=== PATIENT | male | born 1930 | race African-American/Black ===

== ENCOUNTER 2016-10-17 14:35 | Inpatient (IN) | payer MEDICARE, OTHER ==
--- NOTE | ~2016-10-17 | HP ---
History And Physical [address] [place] [address] NAME: MALU REDDY : 32 STATUS : ADM IN PAT#: [id number] AGE: 86 ADM/REG DATE : 10/17/16 MR#: [id number] REPORT SERV DATE: 10/18/16 DICTATED BY: GILA DE LOS SANTOS DATE: 10/17/16 REPORT STATUS : Draft TRANSCRIBED BY: MODL DATE: 10/17/16 DATE OF ADMISSION: 10/17/2016 CHIEF COMPLAINT: Black and red stools starting today. HISTORY OF PRESENT ILLNESS: This is a very pleasant 86 years old gentleman. He is a very poor historian. DICTATION ENDS HERE. CF/MODL Gila De Los Santos M.D. / [id number] CC: MD Toribio Sorto M.D.
--- NOTE | ~2016-10-17 | EGD ---
EGD REPORT [facility] [address] [address] NAME: MALU REDDY : 32 STATUS : ADM IN PAT#: [id number] AGE: 86 ADM/REG DATE : 10/17/16 MR#: [id number] REPORT SERV DATE: 10/19/16 DICTATED BY: JA SOTO DATE: 10/19/16 REPORT STATUS : Draft [facility]ANS[facility]: [facility] DATE: 10/19/16 Endoscopy Center Patient Name: Malu Reddy Date of : 1930 Attending MD: JA SOTO MD Procedure Date No Time: 10/19/2016 Procedure: Colonoscopy Indications: Hematochezia, Heme positive stool, Rectal bleeding, Acute post hemorrhagic anemia Referring MD: RYENALDO PHILIP Medicines: Propofol per Anesthesia Complications: No immediate complications. Procedure: Pre-Anesthesia Assessment: - ASA Grade Assessment: III - A patient with severe systemic disease. After I obtained informed consent, the scope was passed under direct vision. Throughout the procedure, the patient's blood pressure, pulse, and oxygen saturations were monitored continuously. The colonoscopy was performed without difficulty. The patient tolerated the procedure well. The quality of the bowel preparation was good. The CF [id number] was introduced through the anus and advanced to the cecum, identified by appendiceal orifice and ileocecal valve. Findings: The perianal and digital rectal examinations were normal. The colon (entire examined portion) appeared normal. Red blood was found in the rectum, in the recto-sigmoid colon, in the sigmoid colon, in the descending colon and in the transverse colon. Lavage of the area was performed using a large amount of sterile water, resulting in clearance with excellent visualization. no active bleeding site seen Multiple small and large-mouthed diverticula were found in the recto-sigmoid colon, in the sigmoid colon, in the descending colon, at the splenic flexure, in the transverse colon, at the hepatic flexure and in the ascending colon. Non-bleeding internal hemorrhoids were found during retroflexion and were severe, large and Grade I (internal hemorrhoids that do not prolapse). Impression: - The entire examined colon is normal. - Blood in the rectum, in the recto-sigmoid colon, in the sigmoid colon, in the descending colon and in the transverse colon. EGD REPORT [address] [address] NAME: MALU REDDY : [birth year] STATUS : ADM IN PAT#: [id number] AGE: 86 ADM/REG DATE : 10/17/16 MR#: [id number] REPORT SERV DATE: 10/19/16 DICTATED BY: AJ SOTO DATE: 10/19/16 REPORT STATUS : Draft TRANSCRIBED BY: [employer] DATE: 10/19/16 - Diverticulosis in the recto-sigmoid colon, in the sigmoid colon, in the descending colon, at the splenic flexure, in the transverse colon, at the hepatic flexure and in the ascending colon. - Non-bleeding internal hemorrhoids. Recommendation: - Check hemoglobin q 12 hours for two days. - Do a GI bleeding (tagged RBC) scan if symptoms persist. - Return to previous diet. - Repeat colonoscopy in 5 years for screening purposes. - [facility]. Procedure Code(s): --- Professional --- 43116, Colonoscopy, flexible, proximal to splenic flexure; diagnostic, with or without collection of specimen(s) by brushing or washing, with or without colon decompression (separate procedure) Diagnosis Code(s): --- Professional --- K64.0, First degree hemorrhoids K57.30, Diverticulosis of large intestine without perforation or abscess without bleeding K62.5, Hemorrhage of anus and rectum K92.2, Gastrointestinal hemorrhage, unspecified K92.1, Melena R19.5, Other fecal abnormalities D62, Acute posthemorrhagic anemia CPT copyright 2013 [employer]. All rights reserved. The codes documented in this report are preliminary and upon motor vehicle license clerk review may be revised to meet current compliance requirements. Ja Soto MD JA SOTO MD 10/19/2016 10:16 AM This report has been signed electronically. Number of Addenda: 0 Note Initiated On: 10/19/2016 8:35 AM Scope Withdrawal Time 0 hours 13 minutes 12 seconds [address] [place] [address]
--- NOTE | ~2016-10-17 | DS ---
Discharge Summary [facility] [address] [place]. [address] NAME: MALU REDDY : 32 STATUS : DIS IN PAT#: [id number] AGE: 86 ADM/REG DATE : 10/17/16 MR#: [id number] REPORT SERV DATE: 10/21/16 DICTATED BY: REYNALDO KEENE DATE: 10/20/16 REPORT STATUS : Draft TRANSCRIBED BY: MODL DATE: 10/20/16 ADMISSION DATE: 10/17/2016 DISCHARGE DATE: 10/20/2016 Mr. Reddy is an 86-year-old male with a history of diverticulosis, hypertension, glaucoma who presented to the hospital with a complaint of black and red stools for one day. For further details, please refer to H and P dictated by Dr. Pitts on 10/18/2016. HOSPITAL COURSE: Upon presentation to the hospital, the patient was admitted under Hospitalist Service for further management. GI was subsequently consulted. The patient was taken to the Endoscopy Suite for a colonoscopy. Colonoscopy noted diverticulosis in the rectosigmoid colon, in the sigmoid colon, in the descending colon, the splenic flexure, in the transverse colon, the hepatic flexure, and in the ascending colon. However, nonbleeding internal hemorrhoids were found. The entire colon did appear normal. There was no source of bleeding identified. The patient was subsequently returned to the hospital floor for further management. His hemoglobin has been monitored every 12 hours which has remained stable. The patient reports resolution of his symptoms. Throughout hospitalization, the patient has remained hemodynamically stable with no further episodes of gross alcohol bleeding. Given resolution of his symptoms and his hemodynamic stability, the patient will be discharged home today upon GI clearance. Plan has been discussed with the patient who voices understanding and is agreeable with this plan. DISCHARGE DIAGNOSES: 1. Lower gastrointestinal bleed. 2. History of diverticulosis. 3. Hypertension. 4. Acute kidney injury. 5. Glaucoma. 6. Hypokalemia. DISCHARGE EXAMINATION: VITAL SIGNS: Blood pressure 120/70 with pulse of 64, respirations 18, O2 saturation 96% on room air. GENERAL: The patient sitting in bed, in no acute distress, appears stated age, very pleasant. HEENT: Normocephalic, atraumatic. Extraocular motors intact. Moist oral mucosa. NECK: Trachea midline and symmetric. No JVD noted. No thyromegaly present. CHEST: Nontender to palpation. CARDIOVASCULAR: Regular rate and rhythm. S1, S2. No murmurs, rubs, or gallops. LUNGS: Clear to auscultation bilaterally. ABDOMEN: Positive bowel sounds. Nontender. Nondistended. EXTREMITIES: No cyanosis. No clubbing. No edema. NEUROLOGIC: Alert and oriented x3. No focal deficits appreciated. DISCHARGE MEDICATIONS: 1. Amlodipine 10 mg p.o. daily. 2. Brimonidine 1 drop in right eye daily. Discharge Summary [address] [address] NAME: MALU REDDY : 32 STATUS : DIS IN PAT#: [id number] AGE: 86 ADM/REG DATE : 10/17/16 MR#: [id number] REPORT SERV DATE: 10/21/16 DICTATED BY: REYNALDO KEENE DATE: 10/20/16 REPORT STATUS : Draft TRANSCRIBED BY: RAFA DATE: 10/20/16 3. Vytorin 10/40 one tab p.o. at bedtime. 4. Finasteride 5 mg p.o. daily. 5. Imdur 30 mg p.o. daily. 6. Meclizine 12.5 mg p.o. at bedtime. 7. Nexium 40 mg p.o. daily. 8. Valsartan 160 mg p.o. daily. 9. Nitroglycerin 0.4 mg sublingual p.r.n. 10.Breo Ellipta 1 puff inhalation daily. 11.Brinzolamide 1 drop ophthalmic twice a day in right eye. PROCEDURES: Lower endoscopy, colonoscopy performed on 10/19/2016. Please refer to GI notes for detailed results. DISPOSITION: The patient will be discharged home. ACTIVITY: As tolerated. DIET: Low-sodium diet. Greater than 30 minutes was spent coordinating discharge, providing counseling, medication reconciliation, writing prescription, dictation of note. KT/RAFA Reynalod Keene MD / [id number] CC: MD Reynaldo Sanchez M.D.
--- NOTE | ~2016-10-17 | HP ---
History And Physical [facility] [address] [facility] [place]. [address] NAME: MALU REDDY : 34 STATUS : ADM IN PAT#: [id number] AGE: 86 ADM/REG DATE : 10/17/16 MR#: [id number] REPORT SERV DATE: 10/18/16 DICTATED BY: GILA DE LOS SANTOS DATE: 10/17/16 REPORT STATUS : Draft TRANSCRIBED BY: MODL DATE: 10/17/16 DATE OF ADMISSION: 10/17/2016 CHIEF COMPLAINT: GI bleed, black and red stools starting today. HISTORY OF PRESENT ILLNESS: This is an 86-year-old gentleman, very poor historian, very hard of hearing. He has a history of hypertension, hyperlipidemia, peptic ulcer disease, BPH, GERD, glaucoma, remote history of tobacco abuse. He said that he has had some GI bleed in the past. He does not know results of the last colonoscopy that was couple of years ago, he says at [place]. He is on Integra iron at home, presenting today to [facility] with complaints of black stools as well as red stools starting today. Because of the appearance of these bloody stools and black stools, he says he presented to [facility]. He has not had any abdominal pain. No chest pain or shortness of breath. No PND or orthopnea. He has not had any nausea or vomiting. No diarrhea or constipation. He does not have any change in stool form. He has not had any recent GI bleed over the last couple of years. He has been evaluated in the emergency room and Hospitalist Service has been asked for admission, further evaluation, and treatment. His primary care provider is Dr. Toribio Baca. He does not have a current GI doctor. After discussing with Dr. Reece, GI on-call, the patient has been admitted to Hospitalist Service for further evaluation and treatment. PAST MEDICAL HISTORY: Significant for hypertension, hyperlipidemia, peptic ulcer disease and GERD, history of BPH, history of glaucoma, remote history of tobacco abuse, degenerative joint disease, and osteoarthritis. PAST SURGICAL HISTORY: Include left and right knee replacement and bilateral cataract surgery. SOCIAL HISTORY: He is not a smoker. He quit smoking more than 20 years ago, alcohol occasionally, no IV drugs. FAMILY HISTORY: Significant for strokes and also hypertension. MEDICATIONS AT HOME: Include Norvasc, Alphagan ophthalmic solution, brinzolamide ophthalmic solution, Nexium, Vytorin, Proscar, Breo Ellipta, Imdur, meclizine, Nitrostat, prednisolone acetate, Integra, and valsartan. REVIEW OF SYSTEMS: A 14-point review of systems has been obtained and pertinent positive has been listed into the history of present illness. Otherwise, negative except those underlying above. PHYSICAL EXAMINATION: VITAL SIGNS: The patient is afebrile. Blood pressure 133/86, heart rate 87, respiratory rate 16, and saturating 96% on room air. GENERAL: He is a frail-appearing gentleman. He has very poor dentition. Well developed, well nourished, in no acute distress, very hard of hearing. Alert and oriented x3. Nonfocal. He follows commands appropriately. History And Physical [address] [address] NAME: MALU REDDY : 32 STATUS : ADM IN [facility]#: [id number] AGE: 86 ADM/REG DATE : 10/17/16 MR#: [id number] REPORT SERV DATE: 10/18/16 DICTATED BY: GILA DE LOS SANTOS DATE: 10/17/16 REPORT STATUS : Draft TRANSCRIBED BY: RAFA DATE: 10/17/16 HEENT: Show pupils equal, round, reactive to light. Moist mucous membrane. No cervical lymphadenopathy. No thyromegaly. No JVD or bruit appreciated. CHEST: Evaluation shows bilateral air entry, clear anteroposterior. No wheezes, crackles, or rhonchi appreciated. CARDIOVASCULAR: He is regular rate and rhythm. S1 and S2 positive. No S3. No S4. No murmurs, rubs, or gallops appreciated. ABDOMEN: Soft, positive bowel sounds. Nontender. No guarding. No rebound. EXTREMITIES: No clubbing, cyanosis, or edema. NEUROLOGIC: He is alert and oriented x3. He is nonfocal. He follows all commands appropriately. The patient is hard of hearing. LABORATORY DATA: Labs from today include sodium of 141, potassium 3.9, chloride 105, CO2 of 28, BUN 22, creatinine 1.13, glucose is 95, total protein is 8.1, albumin 3.6, globulin 4.5, total bilirubin 0.4, alkaline phosphatase 46, ALT 21, AST 17. White count is 7.2, hemoglobin 12.7, hematocrit 38.3, and platelets are 215. His INR is 1.2. There is CT scan of the abdomen and pelvis without contrast performed in the emergency room, which shows that the patient has no acute abdominopelvic pathology, mild diverticulosis. No diverticulitis. No proctitis. BPH with an enlarged prostate, small fat-containing umbilical hernia, and simple hepatic cyst, otherwise negative. ASSESSMENT: This is an 86-year-old gentleman with: 1. Gastrointestinal bleed. 2. History of peptic ulcer disease. 3. History of diverticulosis. 4. Hypertension. 5. Chronic kidney disease. 6. Prior history of tobacco abuse. 7. History of glaucoma. PLAN: 1. The patient is going to be admitted to Hospitalist Service, keep him on clear liquid diet, Protonix drip, n.p.o. past midnight until seen by Dr. Reece from GI Service. H and H q.6 hours and transfuse as indicated. We are going to hold his Integra. Check all his anemia studies as well. Provide symptomatic pain and nausea control. 2. History of hypertension. We will continue his home medication. Provide p.r.n. hydralazine as needed. 3. History of glaucoma. Continue his home medication. 4. History of tobacco abuse. Nebulizer treatment. Continue his Breo Ellipta. 5. Provide reasonable pain and nausea control as well as GI and DVT prophylaxis with SCDs. That has been discussed extensively with the patient as well as the patient's daughter. All the questions have been answered in full. Further workup and recommendation pending above. It is worthwhile to note that the patient is going to be followed by Dr. Solomon Palomares. CF/MODL History And Physical [address] [address] NAME: MALU REDDY : 32 STATUS : ADM IN PAT#: [id number] AGE: 86 ADM/REG DATE : 10/17/16 MR#: [id number] REPORT SERV DATE: 10/18/16 DICTATED BY: GILA DE LOS SANTOS DATE: 10/17/16 REPORT STATUS : Draft TRANSCRIBED BY: RAFA DATE: 10/17/16 Gila De Los Santos M.D. / [id number] CC: MD Toribio Sorto M.D.
[~2016-10-17 14:35] MED LIST: ALPHAGAN P0.1 % OPH; AZOPT OPH; BENICAR40 PO; IMDUR30 PO; NEXIUM40 PO; NORV10 PO; PROSCAR5 PO; T PO; VYTORIN 10/40 T1 TAB PO
[2016-10-17 15:15] LABS: BASOPHILS 0.4 %; BASOPHILS ABSOLUTE 0.03 10/3/uL (0.0-0.16); EOSINOPHILS 2.2 %; EOSINOPHILS ABSOLUTE 0.16 10/3/uL (0.0-0.53); ER CBC TAT 0 Hrs 07 Mins; HEMATOCRIT 38.3 % (40.0-51.0); HEMOGLOBIN 12.7 g/dL (13.6-17.8); IMMATURE GRANULOCYTES 0.3 %; IMMATURE GRANULOCYTES ABSOLUTE 0.02 10/3/uL (0.0-0.11); LYMPHOCYTES 24.2 %; LYMPHOCYTES ABSOLUTE 1.73 10/3/uL (0.67-4.30); MANUAL DIFF NO %; MEAN CORPUS HGB CONC 33.2 g/dL (32.0-36.0); MEAN CORPUSCULAR HEMOGLOB 28.5 pg (26.0-34.0); MEAN CORPUSCULAR VOLUME 86.1 fL (80-100); MEAN PLATELET VOLUME 9.2 fL (9.2-13.0); MONOCYTES 6.9 %; MONOCYTES ABSOLUTE 0.49 10/3/uL (0.21-1.20); NEUTROPHILS ABSOLUTE 4.72 10/3/uL (2.02-8.40); PLATELET COUNT 215 10/3/uL (150-400); RBC DISTRIBUTION WIDTH 15.6 % (12.0-16.0); RED CELL COUNT 4.45 10/6/uL (4.7-6.1); WHITE BLOOD CELLS 7.2 10/3/uL (4.5-10.5)
[2016-10-17 15:26] LABS: INTERNATIONAL NORMAL RATI 1.2 UNITS (-); PARTIAL THROMBO TIME 32.1 SEC (22.5-37.2); PROTIME (NOT ORD) 14.6 SEC (12.0-14.5)
[2016-10-17 15:28] LABS: A/G RATIO 0.8 (0.7-1.9); ALBUMIN 3.6 G/DL (3.5-5.0); CALCIUM, SERUM 8.8 MG/DL (8.5-10.4); CHLORIDE, SERUM 105 MMOL/L (96-112); CO2 (CARBON DIOXIDE) 28 MMOL/L (24-34); CREATININE 1.38 MG/DL (0.70-1.30); GFR AFRICAN AMERICAN 54 ML/MIN (>=60); GFR NON AFRICAN AMERICAN 47 ML/MIN (>=60); GLOBULIN 4.5 G/DL (2.5-4.1); GLUCOSE, SERUM 95 MG/DL (60-99); POTASSIUM, SERUM 3.9 MMOL/L (3.5-5.3); SGOT(AST) 17 U/L (5-40); SGPT(ALT) 21 U/L (5-65); SODIUM, SERUM 141 MMOL/L (135-148); TOTAL BILIRUBIN 0.4 MG/DL (0-1.2); TOTAL PROTEIN 8.1 G/DL (6.0-8.5)
[2016-10-17 15:29] LABS: ALKALINE PHOSPHATASE 46 U/L (45-117); BUN (BLOOD UREA NITROGEN) 22 MG/DL (6-23)
[2016-10-17] MEDS ORDERED: NORV10 PO (20:51)
[2016-10-17] MEDS ORDERED: AZOPT OPH (20:52)
[2016-10-17] MEDS ORDERED: NEXIUM40 PO (20:52)
[2016-10-17] MEDS ORDERED: ALPHAGAN P0.1 % OPH (20:52)
[2016-10-17] MEDS ORDERED: VYTORIN 10/40 T1 TAB PO (20:52)
[2016-10-17] MEDS ORDERED: IMDUR30 PO (20:53)
[2016-10-17] MEDS ORDERED: PROSCAR5 PO (20:53)
[2016-10-17] MEDS ORDERED: PREDFORTE OPH (20:54)
[2016-10-17] MEDS ORDERED: DIOV160 PO (20:54)
[2016-10-17] MEDS ORDERED: MCZ125 PO (20:55)
[2016-10-17] MEDS ORDERED: NITROSTAT0.4 MG SL (20:55)
[2016-10-17] MEDS ORDERED: BREO ELLIPTA INH (20:55)
[2016-10-17] MEDS ORDERED: INTEGRA PLUS C1 EACH PO (20:55)
[2016-10-17] MEDS ORDERED: INTEGRA IRON PO (20:57)
[2016-10-18 00:32] LABS: HEMATOCRIT 36.2 % (40.0-51.0); HEMOGLOBIN 12.1 g/dL (13.6-17.8)
[2016-10-18 00:40] LABS: INTERNATIONAL NORMAL RATI 1.2 UNITS (-); PARTIAL THROMBO TIME 31.3 SEC (22.5-37.2); PROTIME (NOT ORD) 14.9 SEC (12.0-14.5)
[2016-10-18 01:12] LABS: ALBUMIN 3.5 G/DL (3.5-5.0); ALKALINE PHOSPHATASE 39 U/L (45-117); DIRECT BILIRUBIN 0.2 MG/DL (0.0-0.4); FERRITIN 44 NG/ML (26-388); FREE T4 1.19 NG/DL (0.76-1.46); INDIRECT BILIRUBIN(NOT ORDER) 0.3 MG/DL (0.1-0.9); IRON BINDING CAPACITY 185 MCG/DL (250-450); IRON, SERUM 48 MCG/DL (35-150); PHOSPHORUS, SERUM 2.7 MG/DL (2.5-4.5); SGOT(AST) 14 U/L (5-40); SGPT(ALT) 20 U/L (5-65); TOTAL BILIRUBIN 0.5 MG/DL (0-1.2); TOTAL PROTEIN 7.4 G/DL (6.0-8.5); TROPONIN I <0.02 NG/ML (<0.05)
[2016-10-18 01:26] LABS: ASCORBIC ACID (UR NOT ORDER) NEG (NEG); BILIRUBIN, URINE NEGATIVE (NEG); KETONE, URINE NEGATIVE (NEG); LEUKOCYTE ESTERASE(NOT OR NEG (NEG); WBC (NOT ORDERED) (RFLEX) 2 (0-5)
[2016-10-18 05:28] LABS: HEMATOCRIT 36.8 % (40.0-51.0)
[2016-10-18 05:30] LABS: BASOPHILS 0.5 %; BASOPHILS ABSOLUTE 0.03 10/3/uL (0.0-0.16); EOSINOPHILS 3.3 %; EOSINOPHILS ABSOLUTE 0.21 10/3/uL (0.0-0.53); HEMATOCRIT 35.4 % (40.0-51.0); HEMOGLOBIN 11.7 g/dL (13.6-17.8); IMMATURE GRANULOCYTES 0.2 %; IMMATURE GRANULOCYTES ABSOLUTE 0.01 10/3/uL (0.0-0.11); LYMPHOCYTES 30.1 %; LYMPHOCYTES ABSOLUTE 1.92 10/3/uL (0.67-4.30); MEAN CORPUS HGB CONC 33.1 g/dL (32.0-36.0); MEAN CORPUSCULAR HEMOGLOB 28.6 pg (26.0-34.0); MEAN CORPUSCULAR VOLUME 86.6 fL (80-100); MEAN PLATELET VOLUME 9.9 fL (9.2-13.0); MONOCYTES 13.7 %; MONOCYTES ABSOLUTE 0.87 10/3/uL (0.21-1.20); NEUTROPHILS 52.2 %; NEUTROPHILS ABSOLUTE 3.33 10/3/uL (2.02-8.40); RBC DISTRIBUTION WIDTH 15.7 % (12.0-16.0); RED CELL COUNT 4.09 10/6/uL (4.7-6.1); WHITE BLOOD CELLS 6.4 10/3/uL (4.5-10.5)
[2016-10-18 05:32] LABS: MANUAL DIFF NO %; PLATELET COUNT 120 10/3/uL (150-400)
[2016-10-18 05:45] LABS: CALCIUM, SERUM 8.8 MG/DL (8.5-10.4); CHLORIDE, SERUM 108 MMOL/L (96-112); CO2 (CARBON DIOXIDE) 28 MMOL/L (24-34); CREATININE 1.19 MG/DL (0.70-1.30); GFR AFRICAN AMERICAN 65 ML/MIN (>=60); GFR NON AFRICAN AMERICAN 56 ML/MIN (>=60); POTASSIUM, SERUM 3.6 MMOL/L (3.5-5.3); SODIUM, SERUM 144 MMOL/L (135-148)
[2016-10-18 05:46] LABS: BUN (BLOOD UREA NITROGEN) 18 MG/DL (6-23); GLUCOSE, SERUM 115 MG/DL (60-99)
[2016-10-18 13:17] LABS: HEMATOCRIT 33.6 % (40.0-51.0); HEMOGLOBIN 11.2 g/dL (13.6-17.8)
[2016-10-19 06:55] LABS: BASOPHILS 0.5 %; BASOPHILS ABSOLUTE 0.03 10/3/uL (0.0-0.16); EOSINOPHILS 4.7 %; EOSINOPHILS ABSOLUTE 0.27 10/3/uL (0.0-0.53); HEMATOCRIT 35.5 % (40.0-51.0); HEMOGLOBIN 11.7 g/dL (13.6-17.8); IMMATURE GRANULOCYTES 0.2 %; IMMATURE GRANULOCYTES ABSOLUTE 0.01 10/3/uL (0.0-0.11); LYMPHOCYTES 28.4 %; LYMPHOCYTES ABSOLUTE 1.63 10/3/uL (0.67-4.30); MANUAL DIFF NO %; MEAN CORPUSCULAR HEMOGLOB 28.5 pg (26.0-34.0); MEAN CORPUSCULAR VOLUME 86.6 fL (80-100); MEAN PLATELET VOLUME 8.8 fL (9.2-13.0); MONOCYTES 10.5 %; NEUTROPHILS 55.7 %; NEUTROPHILS ABSOLUTE 3.19 10/3/uL (2.02-8.40); PLATELET COUNT 209 10/3/uL (150-400); RBC DISTRIBUTION WIDTH 15.5 % (12.0-16.0); WHITE BLOOD CELLS 5.7 10/3/uL (4.5-10.5)
[2016-10-19 07:13] LABS: A/G RATIO 0.9 (0.7-1.9); ALBUMIN 3.2 G/DL (3.5-5.0); ALKALINE PHOSPHATASE 35 U/L (45-117); CALCIUM, SERUM 8.6 MG/DL (8.5-10.4); CHLORIDE, SERUM 109 MMOL/L (96-112); CO2 (CARBON DIOXIDE) 27 MMOL/L (24-34); CREATININE 1.09 MG/DL (0.70-1.30); GFR AFRICAN AMERICAN 72 ML/MIN (>=60); GFR NON AFRICAN AMERICAN 62 ML/MIN (>=60); GLOBULIN 3.7 G/DL (2.5-4.1); GLUCOSE, SERUM 117 MG/DL (60-99); POTASSIUM, SERUM 3.8 MMOL/L (3.5-5.3); SGOT(AST) 16 U/L (5-40); SGPT(ALT) 20 U/L (5-65); SODIUM, SERUM 144 MMOL/L (135-148); TOTAL BILIRUBIN 0.4 MG/DL (0-1.2); TOTAL PROTEIN 6.9 G/DL (6.0-8.5)
[2016-10-19 07:16] LABS: BUN (BLOOD UREA NITROGEN) 10 MG/DL (6-23)
[2016-10-20 08:46] LABS: BASOPHILS 0.4 %; BASOPHILS ABSOLUTE 0.02 10/3/uL (0.0-0.16); EOSINOPHILS 4.7 %; EOSINOPHILS ABSOLUTE 0.25 10/3/uL (0.0-0.53); HEMATOCRIT 33.7 % (40.0-51.0); HEMOGLOBIN 11.2 g/dL (13.6-17.8); IMMATURE GRANULOCYTES 0.2 %; IMMATURE GRANULOCYTES ABSOLUTE 0.01 10/3/uL (0.0-0.11); LYMPHOCYTES 32.1 %; LYMPHOCYTES ABSOLUTE 1.71 10/3/uL (0.67-4.30); MEAN CORPUS HGB CONC 33.2 g/dL (32.0-36.0); MEAN CORPUSCULAR HEMOGLOB 28.7 pg (26.0-34.0); MEAN CORPUSCULAR VOLUME 86.4 fL (80-100); MEAN PLATELET VOLUME 9.2 fL (9.2-13.0); MONOCYTES 11.6 %; MONOCYTES ABSOLUTE 0.62 10/3/uL (0.21-1.20); NEUTROPHILS ABSOLUTE 2.72 10/3/uL (2.02-8.40); PLATELET COUNT 232 10/3/uL (150-400); RBC DISTRIBUTION WIDTH 15.6 % (12.0-16.0); WHITE BLOOD CELLS 5.3 10/3/uL (4.5-10.5)
[2016-10-20 08:51] LABS: MANUAL DIFF NO %
[2016-10-20 08:59] LABS: A/G RATIO 0.8 (0.7-1.9); ALBUMIN 3.2 G/DL (3.5-5.0); ALKALINE PHOSPHATASE 35 U/L (45-117); CALCIUM, SERUM 8.5 MG/DL (8.5-10.4); CHLORIDE, SERUM 108 MMOL/L (96-112); CO2 (CARBON DIOXIDE) 28 MMOL/L (24-34); CREATININE 1.13 MG/DL (0.70-1.30); GFR AFRICAN AMERICAN 69 ML/MIN (>=60); GFR NON AFRICAN AMERICAN 59 ML/MIN (>=60); GLOBULIN 3.8 G/DL (2.5-4.1); GLUCOSE, SERUM 109 MG/DL (60-99); POTASSIUM, SERUM 3.4 MMOL/L (3.5-5.3); SGOT(AST) 19 U/L (5-40); SGPT(ALT) 19 U/L (5-65); SODIUM, SERUM 143 MMOL/L (135-148); TOTAL BILIRUBIN 0.3 MG/DL (0-1.2)
[2016-10-20 09:00] LABS: BUN (BLOOD UREA NITROGEN) 6 MG/DL (6-23)
== END 2016-10-20 16:04 | disposition home or self-care (01) | DRG 378 ==
LOC: ER 14:35 → 7NO 21:41
PROVIDERS: Emergency Medicine; Hospitalist; Internal Medicine; Internal Medicine Gastroenterology
PROC: 0DJD8ZZ Inspection of Lower Intestinal Tract, Via Natural or Artificial Opening Endoscopic (ICD-10-PCS; principal; 2016-10-19 09:00)
DX: K92.2 Gastrointestinal hemorrhage, unspecified (principal); N17.9 Acute kidney failure, unspecified; I12.9 Hypertensive chronic kidney disease with stage 1 through stage 4 chronic kidney disease, or unspecified chronic kidney disease; K57.30 Diverticulosis of large intestine without perforation or abscess without bleeding; E78.5 Hyperlipidemia, unspecified; N40.0 Benign prostatic hyperplasia without lower urinary tract symptoms; M19.90 Unspecified osteoarthritis, unspecified site; N18.2 Chronic kidney disease, stage 2 (mild); K64.8 Other hemorrhoids; K21.9 Gastro-esophageal reflux disease without esophagitis; K64.0 First degree hemorrhoids; H40.9 Unspecified glaucoma; H91.90 Unspecified hearing loss, unspecified ear; I25.10 Atherosclerotic heart disease of native coronary artery without angina pectoris; Z87.11 Personal history of peptic ulcer disease; Z87.891 Personal history of nicotine dependence; Z96.653 Presence of artificial knee joint, bilateral; Z82.3 Family history of stroke; Z82.49 Family history of ischemic heart disease and other diseases of the circulatory system
CPT/HCPCS: 36415; 71010; 74177; 80048; 80053; 80076; 81001; 82607; 82728; 82746; 83036; 83540; 83550; 83605; 83615; 83735; 84100; 84439; 84443; 84484; 85014; 85018; 85025; 85610; 85730; 86850; 86900; 86901; 93005; 94640; 96365; 96366; 99291; A9270-GY; C9113; J2370; Q9967